=== PATIENT | male | born 1970 | race Caucasian/White ===

== ENCOUNTER → 2020-06-20 16:03 | Outpatient (CLI) | payer OTHER, SELFPAY ==
--- NOTE | 2020-06-20 16:07 | CT_ITS ---
STUDY: LEFT LOWER EXTREMITY CT SCAN REASON FOR EXAM: Male, 50 years old. LEFT KNEE ARTHRITIS. [facility] PROTOCOL RADIATION DOSAGE (If Supplied By Facility): CTDIvol = ( 18.76 ) mGy, DLP = ( 1207.70 ) mGycm. Individualized dose optimization techniques were used for this CT.? TECHNIQUE: Axial multidetector CT scan of the left lower extremity. Coronal and sagittal reformatted images. [facility] protocol. COMPARISON: None. FINDINGS: Left hip intact with minimal degenerative features. Mild left sacroiliac joint arthrosis. Left knee intact with moderate/severe medial compartment, mild lateral compartment and mild patellofemoral joint space narrowing. Quadriceps tendon enthesophyte. Left ankle intact with Achilles enthesophyte and plantar spur. No acute fracture line. No acute dislocation. No acute cortical destruction. Visualized intraabdominal/pelvic contents within normal limits. Small volume knee joint effusion. No popliteal cyst. Mild swelling at the left knee. CT/Extremity Lower without Contra IMPRESSION: Left knee osteoarthritis predominating medially Small volume left knee joint effusion with mild left knee soft tissue swelling Additional mild degenerative changes, as above Electronically Signed: Nestor Tobias DO at 9:14 EST Tel , Service support ,
== END ==
PROVIDERS: PCP Family Medicine; Referring Provider Orthopaedic Surgery; Visit Provider Orthopaedic Surgery
DX: M17.0 Bilateral primary osteoarthritis of knee (principal)
CPT/HCPCS: 73700

== ENCOUNTER 2020-07-03 05:14 | Day surgery (SDC) | payer OTHER, SELFPAY ==
--- NOTE | 2020-06-26 10:09 | EKG12_ITS ---
Test Reason : PRE SURGERY Blood Pressure : / mmHG Vent. Rate : 063 BPM Atrial Rate : 063 BPM P-R Int : 136 ms QRS Dur : 080 ms QT Int : 366 ms P-R-T Axes : 041 054 047 degrees QTc Int : 374 ms Normal sinus rhythm with sinus arrhythmia Normal ECG Confirmed by ASHOK NORRIS, PHYLLIS ([id number]), manuscript editor POLA CUNNINGHAM ([id number]) on 06/28/2020 6:07:21 AM Referred By: Efra Arnett Confirmed By:PHYLLIS PULIDO MD
[2020-06-26 10:44] LABS: Absolute Lymphocyte Count 2.31 X10^3/uL (0.83-4.51); Absolute Neutrophil Count 4.5 X10^3/uL (2.0-7.7); Basophil# 0.03 X10^3/uL; Basophil% 0.4 % (0-1); Eosinophil# 0.24 X10^3/uL; Eosinophils% 3.1 % (0-5); Hematocrit 46.2 % (40-54); Hemoglobin 15.2 g/dL (13.0-16.5); Lymphocyte # 2.31 X10^3/ul (4.0); Mean Corp Hgb Conc 32.9 g/dL (32-36); Mean Corpuscular Hgb 31.3 pg (27.0-32.0); Mean Corpuscular Volume 95.1 fL (80-94); Mean Platelet Vol. 10.3 fl (6.2-12.0); Monocyte# 0.58 X10^3/uL; Monocyte% 7.5 % (0-10); NRBC Flagged by Analyzer 0 % (0-5); Neutrophil # 4.48 X10^3/uL (2.7-7.7); Neutrophil % 58.2 % (47-70); Platelet Count 246 K/mm3 (150-450); RBC Distribution Width CV 12.5 % (11.6-14.6); RBC Distribution Width SD 43.9 fl (35.1-43.9); Red Blood Count 4.86 M/mm3 (4.6-6.2); White Blood Count 7.7 K/mm3 (4.4-11.0)
[2020-06-26 11:22] LABS: Magnesium 1.9 mg/dL (1.6-2.6)
[2020-06-26 11:24] LABS: Anion Gap 5 (5-15); BUN 14 mg/dL (7-18); BUN/Creat Ratio 13.2 RATIO (10-20); Calcium,Total 8.6 mg/dL (8.5-10.1); Chloride 107 mmol/L (98-107); Creatinine, Serum 1.06 mg/dL (0.70-1.30); EST Glomerular Filtration Rate 78 mL/min (>60); Est Glom Filt Rate - Afr Amer 94 mL/min (>60); Glucose 103 mg/dL (74-106); Potassium 4.4 mmol/L (3.5-5.1); Sodium Level 139 mmol/L (136-145)
[2020-07-03] VITALS (11 sets, daily range): BP systolic 105–131; BP diastolic 59–85; PULSE 58–75; RESP 16; TEMP 36.3–36.6; O2SAT 99–100; BMI 35.3
[2020-07-03] MEDS: Lactated Ringers 1,000 ML 125 ML IV ×2 (05:59→09:45)
[2020-07-03 06:10] LABS: Bedside Glucose 152 mg/dL (70-110)
[2020-07-03] MEDS: Gabapentin 600 MG Tablet PO (06:23)
[2020-07-03] MEDS: Acetaminophen 500 MG Tablet 1000 MG PO ×2 (06:24→14:15)
--- NOTE | 2020-07-03 07:28 | RAD_ITS ---
STUDY: X-RAY - LEFT KNEE REASON FOR EXAM: Male, 50 years old. POST OP TECHNIQUE: 2 view(s) of the knee. COMPARISON: None. FINDINGS: Normal visualized distal femur. Normal visualized proximal tibia and fibula. Normal proximal tibiofibular articulation. The patient is status post total knee replacement. There is good alignment. Postoperative soft tissue changes. RAD/Knee 1 or 2 Views IMPRESSION: Status post total knee replacement. There is good alignment. Postoperative soft tissue changes. Electronically Signed: Yonathan Benjamin MD at 10:49 EST , Service support ,
--- NOTE | 2020-07-03 07:30 | KNEE_PTH ---
PATIENT: RUCHI CHAPMAN [place] [facility] [place][id number] AGE/SX: 50/M ROOM: RE07/03/[address]: Dr. Efra Arnett DO : 1970 BED: DIS: 07/03/2020 SPEC #: [id number] RECD: 07/03/20 10:20 STATUS: DEWAYNE CAHYA #: [id number] RAMÍREZ: 07/03/20 07:[address]: Efra Arnett DEPT: SURGICAL PATHOLOGY RECD BY: Emilia Schilling ENTERED: 07/03/20 10:36 SP TYPE: TOTAL KNEE OTHR DR: Dr. Maik Benedict MD Tissues: Knee, NOS Procedures: Decalcification bone/plaque Surgery Specimen Level IV HEADER OPERATION: ERAS, total knee replacement robotic arm assist PRE-OP DIAGNOSIS: Posttraumatic osteoarthritis left knee TISSUE SUBMITTED: Bone and soft tissue left knee MICROSCOPIC DIAGNOSIS Bone and soft tissue of left knee, total knee resection: Severe degenerative joint disease. Mild synovial hyperplasia. AM:arsenio 07/06/20 MICROSCOPIC DESCRIPTION Slides are reviewed. GROSS DESCRIPTION Received is one container designated bone and soft tissue left knee. The specimen consists of multiple fragments of flores-yellow bone measuring in aggregate 10 x 10 x 3 cm. Also in the specimen container are multiple fragments of yellow-white soft tissue measuring in aggregate 8 x 7 x 3 cm. A number of bony fragments contain articular surfaces consistent with tibial plateau and femoral condyle and displaying prominent osteophyte formation and bone erosion. Exercise Rider sections are submitted in two cassettes as follows: 1 - soft tissue, 2 - bone after decalcification. / SJ:arsenio 07/03/20 TC:5 CPT: 04391, 95039
[2020-07-03] MEDS: Cefazolin 2 GM in 0.9% Normal Saline 100 ML IV (07:47)
--- NOTE | 2020-07-03 09:15 | OP.PCM_ITS ---
Report of Operation Date of Procedure: 07/03/20 Pre-Operative Diagnosis: OA left knee Post-Operative Diagnosis: same Surgery/Procedure Performed:: left TKR manager distribution center: Johan Greenfield Type of Anesthesia:: Spinal Anesthesiologist: Reinaldo Phillip Specimen's removed: bone Estimated Blood Loss (mL): 20cc - Admit VTE Documentation VTE Present on Admission: No VTE Mechan Device Prophylaxis: SCD's, Thigh High YUDITH Hose VTE Pharm Prophylaxis ordered?: Yes
[2020-07-03 10:28] LABS: Hematocrit 42.3 % (40-54); Hemoglobin 14.1 g/dL (13.0-16.5); Mean Corp Hgb Conc 33.3 g/dL (32-36); Mean Corpuscular Hgb 31.8 pg (27.0-32.0); Mean Corpuscular Volume 95.3 fL (80-94); Mean Platelet Vol. 10.3 fl (6.2-12.0); Platelet Count 242 K/mm3 (150-450); RBC Distribution Width CV 12.4 % (11.6-14.6); RBC Distribution Width SD 43.2 fl (35.1-43.9); Red Blood Count 4.44 M/mm3 (4.6-6.2); White Blood Count 7.1 K/mm3 (4.4-11.0)
[2020-07-03 10:40] LABS: Anion Gap 6 (5-15); BUN 11 mg/dL (7-18); Calcium,Total 7.7 mg/dL (8.5-10.1); Chloride 108 mmol/L (98-107); EST Glomerular Filtration Rate 75 mL/min (>60); Est Glom Filt Rate - Afr Amer 90 mL/min (>60); Glucose 117 mg/dL (74-106); Potassium 4.5 mmol/L (3.5-5.1); Sodium Level 139 mmol/L (136-145)
[2020-07-03] MEDS: oxyCODONE 5 MG Tablet PO (14:15)
[2020-07-03] MEDS: Cefazolin 1 GM/50 ML BAG IV (15:00)
== END 2020-07-03 15:30 | disposition home or self-care (01) ==
LOC: SDC 05:16 → AC 05:17
PROVIDERS: Anesthesiology; PCP Family Medicine; Referring Provider Orthopaedic Surgery; Visit Provider Orthopaedic Surgery
PROC: 0SRD0JZ Replacement of Left Knee Joint with Synthetic Substitute, Open Approach (ICD-10-PCS; CPT 27447; principal; 2020-07-03 07:00)
DX: M17.12 Unilateral primary osteoarthritis, left knee (principal); Z20.828 Contact with and (suspected) exposure to other viral communicable diseases; F32.9 Major depressive disorder, single episode, unspecified; F41.9 Anxiety disorder, unspecified; F43.10 Post-traumatic stress disorder, unspecified; Z79.899 Other long term (current) drug therapy; F17.200 Nicotine dependence, unspecified, uncomplicated
CPT/HCPCS: 01402; 27447; S2900; 36415; 73560; 80048; 82962; 83735; 85025; 85027; 87081; 87426; 88305; 88311; 93005; 97161; C1776; C9803; J7120; J2405

== ENCOUNTER → 2020-07-17 13:50 | Outpatient (CLI) | payer OTHER, SELFPAY ==
[2020-07-03 06:12] VITALS: BMI 35.3
--- NOTE | 2020-07-17 13:52 | VDLE_ITS ---
Reason For Study: Pain RIGHT LEFT CFV is compressible, spontaneous, phasic, GSV is normal. competent and demonstrates normal CFV is compressible, spontaneous, phasic, augmentation. competent, and demonstrates normal Procedure augmentation. Exam performed in department. FV is compressible, spontaneous, phasic, A preliminary report was called and/or faxed competent and demonstrates normal to Dr. Arnett. augmentation. POP V is compressible, spontaneous, phasic, competent and demonstrates normal augmentation. T/P Trunk is compressible. PTV is compressible. LT PerV is compressible. Interpretation Summary Deep veins of the left lower extremity are patent and compressible segmentally. There is no evidence of left lower extremity deep vein thrombosis. Valvular competence appears intact within the proximal deep venous system on the left . The left great saphenous vein appears patent and compressible segmentally. Ordering Physician: Efra Arnett Referring Physician: Maik Benedict Performed By: Rosette Salinas, RAUDEL, RVT
== END ==
PROVIDERS: PCP Family Medicine; Referring Provider Orthopaedic Surgery; Visit Provider Orthopaedic Surgery
DX: M79.605 Pain in left leg (principal)
CPT/HCPCS: 93971

== ENCOUNTER → 2022-02-25 | Outpatient (CLI) | payer OTHER, SELFPAY ==
--- NOTE | 2022-02-25 11:52 | RAD_ITS ---
STUDY: X-RAY - LUMBAR SPINE REASON FOR EXAM: Male, 51 years old. Back pain. TECHNIQUE: 3 view(s) of the lumbar spine were obtained. COMPARISON: None FINDINGS: Normal lumbar lordosis. There is no substantial scoliosis. There is a normal alignment of the vertebrae. Diffuse facet sclerosis. Minimal intervertebral disc space narrowing at T11-T12, T12-L1, L1-L2 minimal osteophyte formation at these levels. The soft tissue structures are unremarkable. RAD/Lumbar Spine 2 or 3 Views IMPRESSION: Moderate lumbosacral spondylosis as described. No acute abnormality, evidence of erosive changes or fusion. Electronically Signed: Johan Wylie, at 10:10 EDT ,
== END | disposition home or self-care (01) ==
PROVIDERS: PCP Family Medicine; Referring Provider Anesthesiology Pain Medicine; Visit Provider Anesthesiology Pain Medicine
DX: M54.16 Radiculopathy, lumbar region (principal)
CPT/HCPCS: 72100

== ENCOUNTER → 2022-06-04 | Outpatient (CLI) | payer OTHER, SELFPAY ==
--- NOTE | 2022-06-04 07:35 | CT_ITS ---
PROCEDURE: CT RIGHT KNEE WITHOUT CONTRAST REASON FOR EXAM: Male, 52 years old. Preoperative planning for the [employer] Robotic knee surgery. Knee pain. TECHNIQUE: Transaxial CT of the hip, knee and ankle were obtained. Coronal and sagittal reconstruction images of the knee were provided. Individualized dose optimization techniques were used for this CT. COMPARISON: None. FINDINGS: Standard protocol for the preoperative planning for the [employer] robotic knee surgery was performed. There is mild osteoarthrosis of the hip and knee. CT/Extremity Lower without Contra IMPRESSION: Preoperative M[employer] Robotic knee surgical CT evaluation with findings as described above. Electronically Signed: Johan Wylie, at 9:36 EST ,
== END | disposition home or self-care (01) ==
PROVIDERS: PCP Family Medicine; Visit Provider Orthopaedic Surgery
DX: Z01.818 Encounter for other preprocedural examination (principal); M17.11 Unilateral primary osteoarthritis, right knee; M16.10 Unilateral primary osteoarthritis, unspecified hip
CPT/HCPCS: 73700

== ENCOUNTER 2022-06-24 07:55 | Day surgery (SDC) | payer OTHER, SELFPAY ==
--- NOTE | 2022-06-12 08:07 | EKG12_ITS ---
Test Reason : PREOP Blood Pressure : / mmHG Vent. Rate : 053 BPM Atrial Rate : 053 BPM P-R Int : 140 ms QRS Dur : 080 ms QT Int : 430 ms P-R-T Axes : 004 004 025 degrees QTc Int : 403 ms Sinus bradycardia Otherwise normal ECG Confirmed by ADI NORRIS, YAYA ([id number]), photographic editor EMMETT COLES ([id number]) on 06/13/2022 9:45:56 AM Referred By: EVERETT Confirmed By:YAYA JOSHI MD
[2022-06-12 09:22] LABS: Absolute Neutrophil Count 3.3 X10^3/uL (2.0-7.7); Basophil# 0.02 X10^3/uL; Basophil% 0.3 % (0-1); Eosinophil# 0.22 X10^3/uL; Eosinophils% 3.7 % (0-5); Hematocrit 47.4 % (40-54); Hemoglobin 15.8 g/dL (13.0-16.5); Lymphocyte % 31.7 % (19-41); Mean Corp Hgb Conc 33.3 g/dL (32-36); Mean Corpuscular Hgb 31.9 pg (27.0-32.0); Mean Corpuscular Volume 95.6 fL (80-94); Mean Platelet Vol. 10.8 fl (6.2-12.0); Monocyte# 0.47 X10^3/uL; Monocyte% 7.8 % (0-10); NRBC Flagged by Analyzer 0 % (0-5); Neutrophil # 3.34 X10^3/uL (2.7-7.7); Neutrophil % 55.8 % (47-70); Platelet Count 216 K/mm3 (150-450); RBC Distribution Width CV 12.1 % (11.6-14.6); RBC Distribution Width SD 42.8 fl (35.1-43.9); Red Blood Count 4.96 M/mm3 (4.6-6.2)
[2022-06-12 09:48] LABS: Hemoglobin A1c 5.4 % (3.8-5.6)
[2022-06-12 09:50] LABS: Albumin, Serum 3.9 g/dL (3.2-5.0)
[2022-06-12 09:57] LABS: Anion Gap 5 (5-15); BUN 12 mg/dL (7-18); BUN/Creat Ratio 11.5 RATIO (10-20); Chloride 107 mmol/L (98-107); Creatinine, Serum 1.04 mg/dL (0.70-1.30); EST Glomerular Filtration Rate 79 mL/min (>60); Est Glom Filt Rate - Afr Amer 96 mL/min (>60); Glucose 129 mg/dL (74-106); Magnesium 2.1 mg/dL (1.6-2.6); Potassium 3.9 mmol/L (3.5-5.1); Sodium Level 138 mmol/L (136-145)
[2022-06-24] VITALS (11 sets, daily range): BP systolic 98–126; BP diastolic 64–84; PULSE 48–80; RESP 16–18; TEMP 36.1–36.8; O2SAT 94–100; BMI 34.2
[2022-06-24] MEDS: Acetaminophen 500 MG Tablet 1000 MG PO ×2 (08:35→16:08)
[2022-06-24] MEDS: Magnesium 1 GM over 15 mins IV (08:35)
[2022-06-24] MEDS: Gabapentin 600 MG Tablet PO (08:35)
[2022-06-24] MEDS: Lactated Ringers 1,000 ML 15 ML IV (08:40)
[2022-06-24 09:20] LABS: Bedside Glucose 104 mg/dL (74-106)
--- NOTE | 2022-06-24 10:30 | KNEE_PTH ---
PATIENT: RUCHI CHAPMAN [place] [facility] [place]#:[id number] AGE/SX: 52/M ROOM: RE06/24/[address]: Dr. Efra Arnett DO : 1970 BED: DIS: 06/24/2022 SPEC #: [id number] RECD: 06/24/22 14:25 STATUS: DEWAYNE CHAYA #: [id number] RAMÍREZ: 06/24/22 10:[address]: Efra Arnett DEPT: SURGICAL PATHOLOGY RECD BY: Emilia Schilling ENTERED: 06/25/22 10:04 SP TYPE: TOTAL KNEE OTHR DR: Dr. Maik Benedict MD Tissues: Knee, NOS Procedures: Decalcification bone/plaque Surgery Specimen Level IV HEADER OPERATION: ERAS, total knee replacement robotic arm assist PRE-OP DIAGNOSIS: Osteoarthritis TISSUE SUBMITTED: Right knee bone MICROSCOPIC DIAGNOSIS Bone and tissue of right knee, total knee resection: Degenerative joint disease. Mild synovial hyperplasia. AM:arsenio 06/28/2022 MICROSCOPIC DESCRIPTION Slides are reviewed. GROSS DESCRIPTION Received is one container designated bone right knee. The specimen consists of multiple fragments of flores-yellow bone measuring in aggregate 9 x 8 x 3 cm. Also in the specimen container are multiple fragments of yellow-white soft tissue measuring in aggregate 3.5 x 2 x 0.5 cm. A number of bony fragments contain articular surfaces consistent with tibial plateau and femoral condyle and displaying prominent osteophyte formation, eburnation, and bone erosion. Flow Specialist sections are submitted in two cassettes as follows: 1 - soft tissue, 2 - bone after decalcification. / SJ:arsenio 06/25/2022 TC:5 CPT: 91891, 97220
[2022-06-24] MEDS: Cefazolin 2 GM in 0.9% Normal Saline 100 ML IV (10:44)
[2022-06-24] MEDS: TXA 1000mg in NS100 100ml (IVPB at Closure) 660 MG IV (11:00)
[2022-06-24] MEDS: TXA 1000mg in NS100 100ml (IVPB at Incision) 660 MG IV (11:58)
[2022-06-24] MEDS: Bacitracin 500 UNITS/GM PACKET (12:35)
--- NOTE | 2022-06-24 12:42 | OP.PCM_ITS ---
Report of Operation Date of Procedure: 06/24/22 Pre-Operative Diagnosis: OA right knee Post-Operative Diagnosis: same Surgery/Procedure Performed:: Right TKR Description of Surgical Findings:: Report of Operation Date of Procedure: 06/24/2022 Preoperative Diagnosis: [ Right ] knee primary osteoarthritis Postoperative Diagnosis: [ Right ] knee primary osteoarthritis Operation: Robotic Assisted Knee Total Arthroplasty, [right ] knee Surgeon: Dr Efra Arnett DO Senior Insight Manager: Johan Greenfield PA-C Anesthesia: spinal Anesthesiologist: Dipak Linda M.D. Findings: Stable knee with good patella tracking Specimen(s): Bony cuts Complications: No intraoperative complications Estimated Blood Loss: 20 cc IV Fluids: 1000 cc crystalloid Implants Used: 1. Ning Triathlon press-fit CR size 5 femur 2. Cidra Triathlon size 5 tibia 3. 35 mm patella 4. 9 mm CS polyethylene Brief History Operative Indications: [ (52 y/o male) ] with history of [ right ] knee osteoarthrosis with radiographic findings with loss of joint space, osteophyte formation and subchondral sclerosis. Failed conservative measures as mentioned in the H&P. Discussion of total knee arthroplasty as well as risk and benefits were discussed with the patient including but not limited to blood loss, DVTs, PEs, neurovascular damage, general risk of anesthesia including loss of life, and stiffness or instability were also discussed with the patient. Patient demonstrated understanding and was able to sign informed consent. Procedure: On the date of procedure, patient's [right ] lower extremity was marked in the preoperative area. The patient was then taken back to the operating room where that patient was placed on the table in the supine position. All bony prominences were identified and well-padded. Anesthesia assumed control of the C-spine and airway throughout the remainder of the procedure. A tourniquet was placed on the [right ] upper thigh and the leg was prepped in a sterile fashion. The surgeon then scrubbed at this time. Upon reentering the room, the [right ] lower extremity was draped in a standard orthopedic fashion. A timeout was then called and everyone agreed upon the side, the site, the procedure to be performed, patient's identity and antibiotics given. Esmarch bandage was used to exsanguinate the extremity and the tourniquet was placed up to 250 mmHg with the knee in flexion. A midline skin incision was made and a sharp dissection was taken down through skin, subcutaneous tissue and fat. The standard medial parapatellar incision was made and the patella was subluxed laterally. An appropriate deep MCL release was done and the fat pad was resected. Our attention was then directed to the patella. The patella was everted and a f lat resection was made. The knee was then flexed up and 2 femoral pins were placed inside the incision and 2 tibial pins were placed outside the incision in the medial tibia bicortically. Once this was completed, the 2 checkpoints in the femur and tibia were placed. Knee was then flexed up and the bony landmarks were registered. Once the was completed, the knee taken through range of motion and manually stressed allowing us to plan for an appropriate tibial cut. The robotic arm was brought into the field sterilely and checkpoint and saw were registered. Based on the patient's deformity, the tibial cut was made in [2 degrees varus ]. At this time, the tensioner was then placed in the joint and ligament tension was checked at 90 degrees and full extension. Based on the patient's ligamentous tension, appropriate adjustments were made to the operative plan and ligament releases were done. Once we were happy with our operative plan with balanced flexion and extension gaps, our attention was directed to the femur. The robot was brought into the field sterilely and registered. Posterior condylar cuts, anterior chamfer cuts and anterior cuts were appropriately made for a [size 5 ] femur. When these were completed, the saws were switched out in the distal femoral and posterior chamfer cuts were made. Protecting the soft tissue throughout this time. A [size 5 ] base plate was selected. The knee was flexed to 90 degrees and soft tissues and posterior osteophytes were removed from the joint. 40 cc of the periarticular injection was injected into the posterior medial corner of the joint. The appropriate trials were then placed on the femur and tibia. A trial polyethylene was trialed to ensure proper balancing and stability of the knee. The appropriate tibial internal rotation was then marked with a bovie. Our attention was then directed to the patella. The lug holes were drilled and the patella trial was placed. Patellar tracking was checked and deemed appropriate. Once we were happy, lug holes were drilled for the femur and trial components were removed. The tibia was subluxed and pinned into place and the keel was punched and drilled appropriately. Final components were verified and opened. The wound was copiously irrigated with normal saline. The components were impacted into place with the tibia, femur and finally the patella. The trial poly component was placed and the knee was placed in full extension. The tracking, alignment and balance were verified and a [ 9 mm CS ] polyethylene component was placed. Once the final components were placed an Irrisept lavage was performed and the wound was copiously irrigated with normal saline solution and the periarticular injection was given. the wound was closed in a layer-sosa fashion using #1 vicryl interrupted sutures for the arthrotomy, 2-0 interrupted vicryl suture for the subcuticular layer and keli for final skin closure. A sterile compressive dressing was then placed. The patient was then awakened from anesthesia, transferred to the [place] and transferred to the PACU for recovery. My physician clinical nursing assistant was a vital part of this case. He was important in appropriate retraction during the case, and protection of soft tissues during bony cuts. His intimate knowledge of the case and my steps aided in safe and expedient completion of the procedure as well as appropriate position of the leg during the case. He was also vital in assisting with closure under my direct supervision. Due to the complexity of this case, robotic arm was used to assist in the surgery to improve accuracy and clinical outcomes. Post-op Plan: DVT ppx; ASA 81 mg BID, thigh high compression stockings Follow up: in office in 2 weeks for wound check PT: to start POD #0 at hospital, outpatient PT should be arranged. Preoperative antibiotic: Ancef 2 grams IV Efra Arnett DO Surgeon: Efra Arnett claims coordinator: Johan Greenfield Type of Anesthesia: Spinal Anesthesiologist: Dipak Linda Specimen's removed: bone Estimated Blood Loss (mL): 20 cc Fluids Replaced: 1000 cc crystalloid Admit VTE Documentation VTE Present on Admission: No VTE Mechan Device Prophylaxis: SCD's and Thigh High YUDITH Hose VTE Pharm Prophylaxis ordered?: Yes
[2022-06-24] MEDS: Lactated Ringers 1,000 ML 999 ML IV (12:55)
--- NOTE | 2022-06-24 12:55 | RAD_ITS ---
STUDY: X-RAY - RIGHT KNEE REASON FOR EXAM: Male, 52 years old. Post op TKR -- in PACU TECHNIQUE: 2 view(s) of the knee. COMPARISON: None. FINDINGS: Normal visualized distal femur. Normal visualized proximal tibia and fibula. Normal proximal tibiofibular articulation. The patient is status post total knee replacement. There is good alignment. Postoperative soft tissue changes. RAD/Knee 1 or 2 Views IMPRESSION: Status post total knee replacement. There is good alignment. Postoperative soft tissue changes. Electronically Signed: Yonathan Benjamin MD at 14:05 EST ,
[2022-06-24] MEDS: Lactated Ringers 1,000 ML 125 ML IV (14:03)
== END 2022-06-24 18:24 | disposition home or self-care (01) ==
LOC: SDC 07:55 → AC 07:56
PROVIDERS: Anesthesiology; PCP Family Medicine; Referring Provider Orthopaedic Surgery; Visit Provider Orthopaedic Surgery
PROC: 0SRC0JZ Replacement of Right Knee Joint with Synthetic Substitute, Open Approach (ICD-10-PCS; CPT 27447; principal; 2022-06-24 10:00)
DX: M17.11 Unilateral primary osteoarthritis, right knee (principal); E78.00 Pure hypercholesterolemia, unspecified; F32.A Depression, unspecified; F41.9 Anxiety disorder, unspecified; G47.30 Sleep apnea, unspecified; Z99.89 Dependence on other enabling machines and devices; F12.90 Cannabis use, unspecified, uncomplicated; R00.1 Bradycardia, unspecified; F17.210 Nicotine dependence, cigarettes, uncomplicated; E66.9 Obesity, unspecified; Z68.33 Body mass index [BMI] 33.0-33.9, adult; Z71.3 Dietary counseling and surveillance
CPT/HCPCS: 27447; 01402; 36415; 73560; 80048; 82040; 82962; 83036; 83735; 85025; 87081; 88305; 88311; 93005; 97162; C1776; J7120; J2405; J3475